=== PATIENT | female | born 1965 | race Caucasian/White ===

== ENCOUNTER → 2018-01-25 | Outpatient (CLI) | payer MEDICARE ==
[~2018-01-25] MED LIST: ALPRAZOLAM; ASPIRIN E.C. 8181 MG PO; AUGMENTIN; BIAXIN FILMTAB500 MG PO; BUFFERED ASPIRIN; CELEXA40 MG PO; CIPRO 500MG TA500 MG PO; DARVOCET-N-101 UDTAB PO; DILANTIN; DILANTIN 100MG100 MG PO; FLAGYL500 MG PO; FLEXERIL10 MG PO; LORTAB 5/500 501 TAB PO; MEPEREDINE50 MG PO; METRONIDAZOLE500 MG PO; NAPROSYN500 MG PO; PERCOCET 325 MG1 TA2 PO; PHENERGAN 25 TA25 MG PO; PREDNISONE20 MG PO; PREMARIN 0.60.625 MG PO; PRILOSEC 20MG20 MG PO; TOPIRAMATE; ZOFRAN 4MG T4 MG/TAB PO; [UNRECOGNIZED DRUG - OTHER]
== END ==
LOC: COL.RAD 08:15
DX: R21 Rash and other nonspecific skin eruption (principal); R06.02 Shortness of breath; Z98.890 Other specified postprocedural states; Z90.49 Acquired absence of other specified parts of digestive tract
CPT/HCPCS: Q9967

== ENCOUNTER 2018-11-04 20:18 | Emergency (ER) | payer MEDICARE ==
[~2018-11-04] VITALS: Ht 160 cm; Wt 66.8 kg
[2018-11-04 20:30] VITALS: TEMP 97.7
[2018-11-04] MEDS ORDERED: PREDNISONE20 MG PO (21:29)
[2018-11-04 22:03] VITALS: BP 112/80; PULSE 94
== END 2018-11-04 22:08 | disposition home or self-care (01) ==
LOC: COL.ER 20:18
DX: T78.1XXA Other adverse food reactions, not elsewhere classified, initial encounter (principal); R06.02 Shortness of breath; J44.9 Chronic obstructive pulmonary disease, unspecified; F17.210 Nicotine dependence, cigarettes, uncomplicated; Z90.710 Acquired absence of both cervix and uterus; Z90.89 Acquired absence of other organs
CPT/HCPCS: J1200; J2930; J7030

== ENCOUNTER 2020-08-25 16:36 | Emergency (ER) | payer MEDICARE ==
[~2020-08-25] VITALS: Ht 160 cm; Wt 62.5 kg
[2020-08-25 16:47] VITALS: TEMP 97.6
[2020-08-25] MEDS ORDERED: CAPSAICIN60 GM TP (17:22)
[2020-08-25 17:40] VITALS: BP 108/70; PULSE 80
== END 2020-08-25 17:43 | disposition home or self-care (01) ==
LOC: COL.ER 16:36
DX: S89.91XA Unspecified injury of right lower leg, initial encounter (principal); Z90.710 Acquired absence of both cervix and uterus; Z90.49 Acquired absence of other specified parts of digestive tract; Z88.5 Allergy status to narcotic agent; Z88.6 Allergy status to analgesic agent; Z79.82 Long term (current) use of aspirin; W01.198A Fall on same level from slipping, tripping and stumbling with subsequent striking against other object, initial encounter

== ENCOUNTER → 2020-10-15 | Outpatient (CLI) | payer MEDICARE ==
[~2020-10-15] MED LIST changes: +CAPSAICIN60 GM TP
== END ==
LOC: COL.RAD 12:05
DX: M67.461 Ganglion, right knee (principal)
CPT/HCPCS: A9585

== ENCOUNTER 2022-05-09 15:11 | Emergency (ER) | payer MEDICARE ==
[~2022-05-09] VITALS: Ht 160 cm; Wt 67.3 kg
[2022-05-09 16:51] LABS: BASO # 0.1 K/mm3 (0.0-0.2); BASO % 0.5 % (0.0-2.0); EOS # 0.1 K/mm3 (0.0-0.7); EOS % 0.7 % (0.0-4.0); GRAN # 8.3 K/mm3 (1.4-6.5); GRAN % 73.1 % (42.2-75.2); HEMATOCRIT 47.5 % (37.0-47.0); HEMOGLOBIN 16.3 g/dl (12.5-16.0); LYMPH # 1.9 K/mm3 (1.2-3.4); LYMPH % 17.2 % (20.0-51.0); MEAN CELL VOLUME 91 fl (80.0-100.0); MEAN CORPUSCULAR HEMOGLOBIN 31 pg (27-31); MEAN CORPUSCULAR HGB CONC 34 g/dl (33.0-37.0); MEAN PLATELET VOLUME 10.6 fl (7.4-10.4); MONO # 0.9 K/mm3 (0.1-0.6); MONO % 8.1 % (1.7-9.3); PLATELET COUNT 341 K/mm3 (130-400); RED BLOOD COUNT 5.24 M/mm3 (4.10-5.30); REDCELL DISTRIBUTION WIDTH-CV 13.4 % (11.5-14.5)
[2022-05-09 17:06] LABS: BILIRUBIN,TOTAL 0.6 mg/dL (0.2-1.2); C-REACTIVE PROTEIN 0.52 mg/dL (0.00-0.50); CALCIUM 9.1 mg/dL (8.4-10.2); CREATININE, serum 0.73 mg/dL (0.57-1.11); POTASSIUM 4.2 mmol/L (3.5-4.5)
[2022-05-09 18:08] LABS: COLLECTION METHOD CLEAN CATCH
[2022-05-09 18:16] LABS: MUCOUS Present (NOT PRESENT); SQUAMOUS EPITHELIAL 0-2 /hpf (0-10); URINE BACTERIA None Seen /hpf (NONE SEEN)
[2022-05-09 18:31] LABS: PH 5 (5-8); URINE APPEARANCE Clear (CLEAR/HAZY); URINE COLOR Yellow (YELLOW); URINE GLUCOSE Negative (NEGATIVE); URINE KETONE 1+ (NEGATIVE); URINE PROTEIN(semi-quant) Negative (NEGATIVE)
[2022-05-09 18:32] LABS: URINE BLOOD Negative (NEGATIVE); URINE NITRATE Negative (NEGATIVE); URINE UROBILINOGEN Negative (NEGATIVE)
[2022-05-09 19:29] VITALS: BP 119/73; PULSE 68; TEMP 98
== END 2022-05-09 19:56 | disposition home or self-care (01) ==
LOC: COL.ER 15:11
PROVIDERS: Nurse Practitioner
DX: R10.13 Epigastric pain (principal); F17.210 Nicotine dependence, cigarettes, uncomplicated; Z90.49 Acquired absence of other specified parts of digestive tract; Z88.5 Allergy status to narcotic agent
CPT/HCPCS: J2405; J3010; J7030; Q9967

== ENCOUNTER 2023-10-12 10:47 | Inpatient (IN) | payer MEDICARE ==
[~2023-10-12] VITALS: Ht 160 cm; Wt 67.2 kg
[2023-10-12] MEDS ORDERED: dexAMETHasone 10 MG/ML VIAL IV ONE (11:15)
[2023-10-12] MEDS ORDERED: NS 1,000 ML IV ONE (11:15)
[2023-10-12] MEDS ORDERED: Albuterol/Ipratropium 3 MG-0.5 MG/3 ML Neb Soln IH ONE ×3 (11:15→13:15)
[2023-10-12] MEDS ORDERED: LEXAPRO20 MG (11:56)
[2023-10-12] MEDS ORDERED: MEDROL 4MG DOSPA4 MG PO (11:56)
[2023-10-12 11:57] LABS: BASO # 0.1 K/mm3 (0.0-0.2); BASO % 0.5 % (0.0-2.0); EOS # 0.1 K/mm3 (0.0-0.7); EOS % 0.9 % (0.0-4.0); GRAN % 80.1 % (42.2-75.2); HEMATOCRIT 44.8 % (37.0-47.0); LYMPH # 1.6 K/mm3 (1.2-3.4); LYMPH % 11.9 % (20.0-51.0); MEAN CELL VOLUME 93 fl (80.0-100.0); MEAN CORPUSCULAR HEMOGLOBIN 31 pg (27-31); MEAN CORPUSCULAR HGB CONC 34 g/dl (33.0-37.0); MEAN PLATELET VOLUME 9.7 fl (7.4-10.4); MONO # 0.8 K/mm3 (0.1-0.6); MONO % 5.9 % (1.7-9.3); PLATELET COUNT 313 K/mm3 (130-400); RED BLOOD COUNT 4.82 M/mm3 (4.10-5.30)
[2023-10-12] MEDS ORDERED: ULTRAM 50MG TAB50 MG PO (11:57)
[2023-10-12] MEDS ORDERED: RESTORIL 1515 MG/CAP PO (11:57)
[2023-10-12] MEDS ORDERED: LYVISPAH5 MG PO (11:58)
[2023-10-12] MEDS ORDERED: FLONASEALLERGY NS (11:59)
[2023-10-12] MEDS ORDERED: LIORESAL 1010 MG/TAB PO (12:00)
[2023-10-12] MEDS ORDERED: MESTINON 6060 MG/TAB PO (12:01)
[2023-10-12] MEDS ORDERED: DOXYCYCLINE 10100 MG PO (12:02)
[2023-10-12 12:12] LABS: ALBUMIN 3.7 gm/dL (3.5-5.0); BILIRUBIN,TOTAL 0.5 mg/dL (0.2-1.2); CALCIUM 8.6 mg/dL (8.4-10.2); CREATININE, serum 0.74 mg/dL (0.57-1.11); POTASSIUM 4.1 mmol/L (3.5-4.5); TOTAL PROTEIN 7.2 gm/dL (6.2-8.1)
[2023-10-12] MEDS ORDERED: Azithromycin 250 MG TAB PO ONE (13:30)
--- NOTE | 2023-10-12 15:42 | NUR ---
PATIENT TO MEDICAL UNIT AT APPROX 1510. PATIENT IS ALERT AND ORIENTED. GAIT IS STEADY, HOWEVER, HAS DYSPNEA ON EXERT. PATIENT IS ON 2L OF O2 VIA NC. VSS. ADMISSION ASSESSMENT COMPLETE. NO SKIN ISSUES. IV TO LFA HAS NO EDEMA, REDNESS, OR DRAINAGE. PATIENT LIVES WITH AN ELDERLY FRIEND THAT SHE CARES FOR ON A DAILY BASIS. PATIENT DENIES PAIN OR DISCOMFORT AT THIS TIEME. PATIENT ORIENTED TO ROOM. CALL LIGHT WITHIN REACH. WILL CONT TO MONITOR FOR CHANGES.
[2023-10-12 15:58] VITALS: BP 102/58; PULSE 67; TEMP 97.9
[2023-10-12] MEDS ORDERED: Acetaminophen 325 MG TAB PO PRN (16:15)
[2023-10-12] MEDS ORDERED: traMADol 50 MG TAB PO PRN (16:15)
[2023-10-12] MEDS ORDERED: Albuterol/Ipratropium 3 MG-0.5 MG/3 ML Neb Soln IH PRN (16:15)
[2023-10-12] MEDS ORDERED: Ondansetron 4 MG/2 ML VIAL IV PRN (16:15)
[2023-10-12 16:35] VITALS: BP_SYST 102
[2023-10-12] MEDS ORDERED: Albuterol/Ipratropium 3 MG-0.5 MG/3 ML Neb Soln IH SCH (20:00)
[2023-10-12 20:15] VITALS: BP 97/47; PULSE 77; TEMP 98.5
[2023-10-12 21:00] VITALS: BP_SYST 106
[2023-10-12] MEDS ORDERED: Temazepam 15 MG CAP PO SCH (21:46)
[2023-10-12 23:30] VITALS: BP 96/53; PULSE 65; TEMP 98
[2023-10-13] VITALS (11 sets, daily range): BP systolic 94–112; BP diastolic 43–53; PULSE 59–90; TEMP 97.7–98.5
--- NOTE | 2023-10-13 04:44 | NUR ---
NURSING SHIFT ASSESSMENT COMPLETED. THE PATIENT WAS ALERT AND ORIENTED. THE PATIENT REPORTED BILATERAL KNEE PAIN 5/10. PAIN MEDICATION TO FOLLOW. THE PATIENT DENIED NEEDS AT THIS TIME. THE PLAN OF CARE AND EVENING MEDICATIONS REVIEWED. THE BED WAS IN THE LOW POSITION, CALL LIGHT AND PERSONAL BELONGINGS WITHIN REACH.
[2023-10-13 08:55] LABS: BASO % 0.2 % (0.0-2.0); EOS % 0.1 % (0.0-4.0); GRAN # 11.6 K/mm3 (1.4-6.5); GRAN % 77.5 % (42.2-75.2); HEMATOCRIT 40.5 % (37.0-47.0); HEMOGLOBIN 13.3 g/dl (12.5-16.0); LYMPH # 2.3 K/mm3 (1.2-3.4); LYMPH % 15.3 % (20.0-51.0); MEAN CELL VOLUME 93 fl (80.0-100.0); MEAN CORPUSCULAR HEMOGLOBIN 31 pg (27-31); MEAN CORPUSCULAR HGB CONC 33 g/dl (33.0-37.0); MEAN PLATELET VOLUME 10.4 fl (7.4-10.4); MONO % 6.4 % (1.7-9.3); PLATELET COUNT 335 K/mm3 (130-400); RED BLOOD COUNT 4.36 M/mm3 (4.10-5.30); REDCELL DISTRIBUTION WIDTH-CV 13.1 % (11.5-14.5)
[2023-10-13] MEDS ORDERED: cefTRIAXone 1 G in Water For Injection,Sterile 10 ML IV SCH (09:00)
[2023-10-13] MEDS ORDERED: Escitalopram 10 MG TAB PO SCH (09:00)
[2023-10-13] MEDS ORDERED: dexAMETHasone 10 MG/ML VIAL IV SCH (09:00)
[2023-10-13] MEDS ORDERED: Azithromycin 500 MG in NS 250 ML IV SCH (09:00)
[2023-10-13 09:10] LABS: CALCIUM 8.7 mg/dL (8.4-10.2); CREATININE, serum 0.65 mg/dL (0.57-1.11)
--- NOTE | 2023-10-13 10:36 | NUR ---
Patient alert and oriented x4. Denies pain or discomfort other than some throat soreness. Shift assessment complete, wheezes noted to all lung ortega. Patient complains of dyspnea with exertion, but says when she is laying down or at rest she feels okay. Gait is steady, and patient has been ambulating self to bathroom often. Patient resting in bed with call light in reach and SCDs on. All needs met at this time.
--- NOTE | 2023-10-13 10:46 | NUR ---
Data: Patient accepted visit from [employer] offered during [employer] rounds. Patient requested a bible, which [employer] Tender provided. Patient spoke openly about her melanie, her biblical studies, and her prayer life. [employer] Machine Tender prayed for Patient. Assessment: Patient has an active spiritual life and welcomed the opportunity to have someone who understands that life provide supportive listening for her. Plan of Care: [employer] Tender provided a bible, supportive listening, and prayer. Patient expressed her gratitude for visit. Chaplains will remain available as needed/desired thoughout Patient's admission at this hospital.
--- NOTE | 2023-10-13 18:46 | NUR ---
Patient remains stable. Denies pain at this time. Tolerating food and fluids well. Ambulating at baseline. Patient in bed with call light in reach, all needs met at this time.
[2023-10-13] MEDS ORDERED: Baclofen 10 MG TAB PO SCH (21:00)
[2023-10-13] MEDS ORDERED: guaiFENesin ER 1,200 MG **** subs to guaiFENesin 400 MG PO SCH (21:00)
--- NOTE | 2023-10-13 22:32 | NUR ---
Patient assessed around 2114. Alert and oriented x 4, and able to make needs known. Denies having pain and discomfort. Reports cough does feel like it is getting better. Denies SOB and dyspnea. Has moist cough, unable to cough up sputum. LS CTA in upper lobes, coarse in lower. Remains on room air. HRR. Telemetry in place. BSAx4. No edema. Voices no questions, needs, or concerns at this time. In bed with call light within reach.
[2023-10-14 03:21] VITALS: BP 118/45; PULSE 50; TEMP 97.5
[2023-10-14 04:21] VITALS: BP_SYST 118
--- NOTE | 2023-10-14 06:42 | NUR ---
Remains on room air. Has voiced no complaints of pain or discomfort this shift. Voices no questions, needs, or concerns at this time. In bed with call light within reach.
[2023-10-14 07:11] LABS: BASO # 0.1 K/mm3 (0.0-0.2); BASO % 0.4 % (0.0-2.0); EOS % 0.3 % (0.0-4.0); GRAN # 8.4 K/mm3 (1.4-6.5); GRAN % 66.2 % (42.2-75.2); HEMATOCRIT 44.3 % (37.0-47.0); HEMOGLOBIN 14.3 g/dl (12.5-16.0); LYMPH # 3.1 K/mm3 (1.2-3.4); LYMPH % 24.2 % (20.0-51.0); MEAN CELL VOLUME 93 fl (80.0-100.0); MEAN CORPUSCULAR HEMOGLOBIN 30 pg (27-31); MEAN CORPUSCULAR HGB CONC 32 g/dl (33.0-37.0); MEAN PLATELET VOLUME 9.9 fl (7.4-10.4); MONO % 7.8 % (1.7-9.3); PLATELET COUNT 341 K/mm3 (130-400); RED BLOOD COUNT 4.76 M/mm3 (4.10-5.30); REDCELL DISTRIBUTION WIDTH-CV 13.2 % (11.5-14.5)
[2023-10-14 07:22] VITALS: BP 109/58; PULSE 57; TEMP 97.9
[2023-10-14 07:29] LABS: CALCIUM 8.7 mg/dL (8.4-10.2); CREATININE, serum 0.69 mg/dL (0.57-1.11); POTASSIUM 4.3 mmol/L (3.5-4.5)
[2023-10-14 08:45] VITALS: BP_SYST 109
--- NOTE | 2023-10-14 09:48 | NUR ---
SW met with patient to complete intake. Patient confirmed that her PCP is Dr Hutson and pharmacy of choice is [facility] in [place]. Patient shared that her NOK is friend Alia Ibanez [phone] and she does have DPOA at her residence. Patient informed SW that she does occassionally use a walker in her home and CPAP and nebulizer. Patient reports that she is independent with ADLs. D/C pending at this time--pending medical recommendations.
[2023-10-14] MEDS ORDERED: OMNICEF 300MG300 MG PO (11:19)
[2023-10-14] MEDS ORDERED: MUCUS RELIEF400 M1 PO (11:20)
[2023-10-14] MEDS ORDERED: DECADRON 4MG TAB4 MG PO (11:22)
--- NOTE | 2023-10-14 11:28 | NUR ---
Patient alert and oriented x4. Shift assessment complete, no new variances noted. Wheezing continues to lungs, but is improved from yesterday. Activity at patient's baseline. Denies pain this morning. Voices no concerns other than worried about not getting rest when discharged home. Stable on room air. Patient in bed with call light in reach, all needs met at this time.
[2023-10-14] MEDS ORDERED: IPRATROPIUM BROM3 M1 IH ×2 (11:38)
[2023-10-14 12:28] VITALS: BP 129/64; PULSE 65; TEMP 97.6
[2023-10-14 12:32] VITALS: BP 129/64; PULSE 65; TEMP 97.6
--- NOTE | 2023-10-14 13:57 | NUR ---
Discharge instructions discussed with patient including follow-up appointment, new medications/changes, education packets. Patient informed that PCP's office has been faxed regarding appointment and should be reaching out. IV discontinued to left forearm with no complications. Telemetry off. Patient escorted out by staff via ambulation.
== END 2023-10-14 13:15 | disposition home or self-care (01) | DRG 193 ==
LOC: COL.ER 10:47 → MEDICAL 13:30
PROVIDERS: Emergency Medicine; Physician Assistant; ADMIT Hospitalist
DX: J18.9 Pneumonia, unspecified organism (principal); J96.01 Acute respiratory failure with hypoxia; E87.20 Acidosis, unspecified; J45.901 Unspecified asthma with (acute) exacerbation; B97.89 Other viral agents as the cause of diseases classified elsewhere; B97.10 Unspecified enterovirus as the cause of diseases classified elsewhere; G40.909 Epilepsy, unspecified, not intractable, without status epilepticus; Z66 Do not resuscitate; I48.91 Unspecified atrial fibrillation; F32.A Depression, unspecified; G47.00 Insomnia, unspecified; G35 Multiple sclerosis; Z20.822 Contact with and (suspected) exposure to COVID-19; G70.00 Myasthenia gravis without (acute) exacerbation; M32.9 Systemic lupus erythematosus, unspecified; Z88.8 Allergy status to other drugs, medicaments and biological substances; Z88.6 Allergy status to analgesic agent; Z91.013 Allergy to seafood; Z90.710 Acquired absence of both cervix and uterus; Z87.891 Personal history of nicotine dependence; Z85.828 Personal history of other malignant neoplasm of skin; Z90.49 Acquired absence of other specified parts of digestive tract; Z90.89 Acquired absence of other organs; Z87.19 Personal history of other diseases of the digestive system; Z79.82 Long term (current) use of aspirin; Z79.899 Other long term (current) drug therapy
CPT/HCPCS: J0456; J0696; J1100; J1650; J7030; J7050